=== PATIENT | female | born 1995 | race Caucasian/White ===

== ENCOUNTER → 2023-07-31 09:19 | Outpatient (REF) | payer BC, SELFPAY | LOC: HWRAD 09:19 | PROVIDERS: ATTENDING PHYSICIAN Registered Nurse | DX: R22.31 Localized swelling, mass and lump, right upper limb (principal); R61 Generalized hyperhidrosis | CPT/HCPCS: 71270; 74178; Q9967 ==

== ENCOUNTER → 2023-08-03 08:19 | Outpatient (REF) | payer BC, SELFPAY | LOC: WDC 08:19 | PROVIDERS: ATTENDING PHYSICIAN Registered Nurse | DX: R22.31 Localized swelling, mass and lump, right upper limb (principal); N63.31 Unspecified lump in axillary tail of the right breast | CPT/HCPCS: 76642 ==